=== PATIENT | female | born 1955 | race Caucasian/White ===

== ENCOUNTER 2017-03-16 09:55 | Outpatient (CLI) | payer MEDICARE, OTHER ==
[2013-02-17 13:08] VITALS: O2SAT 98
== END 2017-03-16 09:56 | disposition home or self-care (01) | DRG 554 ==
LOC: CONVCARE 09:55
PROVIDERS: ATTEND Orthopaedic Surgery
DX: M17.12 Unilateral primary osteoarthritis, left knee (principal)
CPT/HCPCS: 73564

== ENCOUNTER 2017-07-16 21:27 | Emergency (ER) | payer MEDICARE, OTHER ==
[2017-07-16] MEDS ORDERED: CYCLOBENZAPRINE 10 MG TAB PO ONE (21:36)
[2017-07-16 21:37] VITALS: RESP 20; TEMP 98.2
[2017-07-16] MEDS ORDERED: CYCLOBENZAPRINE 10 MG TAB ONE (21:45)
[2017-07-16 23:14] VITALS: BP 171/95; PULSE 90; O2SAT 97
== END 2017-07-16 23:14 | disposition home or self-care (01) | DRG 558 ==
LOC: ED 21:27
DX: M77.9 Enthesopathy, unspecified (principal); M62.838 Other muscle spasm
CPT/HCPCS: 72040; 73030; 99282; A9270-GY